=== PATIENT | female | born 1995 | race Hispanic/Latino ===

== ENCOUNTER 2020-11-19 17:40 | Emergency (ER) | payer SELFPAY ==
[2020-11-19 19:03] LABS: Pregnancy Test - Urine (BHCG) Negative (Negative); Pregu Control Background? CLEAR/WHITE (CLR/WHITE); Pregu Control Bar Appear? YES (CONTROL BAR)
[2020-11-19 19:07] LABS: Bilirubin Negative (Negative); Blood, Urine Trace (Negative); Clarity Clear (Clear); Glucose, Urine (Dipstick) Negative (Negative); Ketone, Urine Negative (Negative); Leukocyte Negative (Negative); Nitrite Negative (Negative); Protein, Urine (Dipstick) 30 mg/dL (Neg-Trace); pH, Urine 7.5 (5.0-9.0)
[2020-11-19 19:08] LABS: Bacteria/HPF None Seen HPF (None Seen); Squamous Epithelial 0-3 HPF (0-3); WBC/HPF 0-3 HPF (0-3)
== END 2020-11-19 19:50 | disposition home or self-care (01) ==
LOC: BURERS 17:40
DX: N94.10 Unspecified dyspareunia (principal); R10.2 Pelvic and perineal pain
CPT/HCPCS: 81003; 81015; 81025; 99284